=== PATIENT | male | born 1990 | race Hispanic/Latino ===

== ENCOUNTER 2018-12-21 19:07 | Emergency (ER) | payer SELFPAY ==
--- NOTE | 2018-12-21 20:14 | RAD ---
RIGHT FINGER TWO VIEWS: 12/21/18 INDICATION: Swelling and impaired mobility of the fourth digit after fall. FINDINGS: There is healed deformity involving the small finger metacarpal. No acute fracture or subluxation is evident. No radiopaque foreign body is evident. IMPRESSION: Healed deformity of the small finger metacarpal. No acute fracture or subluxation demonstrated. POS: [facility]
== END 2018-12-21 20:50 | disposition home or self-care (01) ==
LOC: NAV ERS 19:07
DX: S62.604A Fracture of unspecified phalanx of right ring finger, initial encounter for closed fracture (principal); S62.602A Fracture of unspecified phalanx of right middle finger, initial encounter for closed fracture; F17.290 Nicotine dependence, other tobacco product, uncomplicated; V00.131A Fall from skateboard, initial encounter